=== PATIENT | female | born 1975 | race Caucasian/White ===

== ENCOUNTER 2025-01-15 12:11 | Emergency (ER) | payer MEDICAID, OTHER ==
[~2025-01-15] VITALS: Ht 172.7 cm; Wt 63.2 kg
[2025-01-15] MEDS: SODIUM CHLORIDE 0.9% 1,000 ML IV ONE ×2 (12:15→12:45)
--- NOTE | 2025-01-15 12:18 | ED.PDOC ---
History of Present Illness HPI Comments 49 year old female JARET presents to the ED with chief complaint of numbness/tingling. 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 Patient relays that she then experienced an episode of nausea and vomiting prior to EMS arrival. EMS states they provided the patient 4mg of Zofran IV and her Accucheck was 144. Patient states she has had a cough with associated nasal congestion for about a week now. Patient denies any chest pain, SOB, headache, dizziness, numbness or weakness of extremities, or abdominal pain. Time Seen by MD: 12:15 Reviewed Notes: Nurses Notes, Supply Chain Generalist Notes, Medications, Allergies Allergies: Coded Allergies: NO KNOWN ALLERGIES (Unverified , 01/15/25) Information Source: Patient, Emergency Med Personnel Mode of Arrival: EMS Severity: Moderate Timing: Hours Duration: Since onset Prehospital treatment: None Past Medical History PAST MEDICAL HISTORY: Denies Surgical History: VALVER History: No Pertinent VALVER History Family History Family History: Reviewed,noncontributory to illness, Family hx of DM, Family hx of Cancer Social History Smoker: Non-Smoker Alcohol: Denies ETOH Use Drugs: Marijuana Lives In: Home Constitutional: denies: chills, diaphoresis, fatigue, fever, malaise, sweats, weakness, others EENTM: reports: nose congestion; denies: blurred vision, double vision, ear bleeding, ear discharge, ear drainage, ear pain, ear ringing, eye pain, eye redness, hearing loss, mouth pain, mouth swelling, nasal discharge, nose bleeding, nose pain, photophobia, tearing, throat pain, throat swelling, voice changes, others Respiratory: reports: cough; denies: hemoptysis, orthopnea, SOB at rest, shortness of breath, SOB with excertion, stridor, wheezing, others Cardiovascular: denies: chest pain, dizzy spells, diaphoresis, Dyspnea on exertion, edema, irregular heart beat, left arm pain, lightheadedness, palpitations, PND, syncope, others Gastrointestinal: reports: nausea, vomiting; denies: abdomen distended, abdominal pain, blood streaked bowels, constipated, diarrhea, dysphagia, difficulty swallowing, hematemesis, melena, poor appetite, poor fluid intake, rectal bleeding, rectal pain, others Genitourinary: denies: abnormal vagina bleeding, burning, dyspareunia, dysuria, flank pain, frequency, hematuria, incontinence, pain, , vagina discharge, urgency, others Neurological: reports: numbness (to hands and feet), tingling (to hands and feet); denies: dizziness, fainting, headache, left sided numbness, left sided weakness, paresthesia, pre-existing deficit, right sided numbness, right sided weakness, seizure, speech problems, tremors, weakness, others Musculoskeletal: denies: back pain, gout, joint pain, joint swelling, muscle pain, muscle stiffness, neck pain, others Integumetry: denies: bruises, change in color, change in hair/nails, dryness, laceration, lesions, lumps, rash, wounds, others Allergic/Immunocompromised: denies: Difficulty Healing, Frequent Infections, Hives, Itching, others Hematologic/Lymphatic: denies: anemia, blood clots, easy bleeding, easy bruising, swollen glands, others Endocrine: denies: excessive hunger, excessive sweating, excessive thirst, excessive urination, flushing, intolerance to cold, intolerance to heat, unexplained weight gain, unexplained weight loss, others Psychiatric: denies: anxiety, bipolar disorder, depression, hopeless, panic disorder, schizophrenia, sleepless, suicidal, others All Other Systems: Reviewed and Negative Physical Exam General Appearance: No Apparent Distress HEENT: Normal ENT Inspection, Pharynx Normal, TMs Normal Neck: Full Range of Motion, Non-Tender, Normal, Normal Inspection Respiratory: Chest Non-Tender, Lungs Clear, No Accessory Muscle Use, No Res piratory Distress, Normal Breath Sounds Cardiovascular: No Edema, No JVD, No Murmur, No Gallop, Normal Peripheral Pulses, Regular Rate/Rhythm Breast Exam: Deferred Gastrointestinal: No Organomegaly, Non Tender, No Pulsatile Mass, Normal Bowel Sounds, Soft Genitalia: Deferred Pelvic: Deferred Rectal: Deferred Extremities: No calf tenderness, Normal capillary refill, Normal inspection, Normal range of motion, Non-tender, No pedal edema Musculoskeletal : Apperance: Normal Neurologic: Alert, cook sauce II-XII nml as Tested, No Motor Deficits, Normal Affect, Normal Mood, No Sensory Deficits Cerebellar Function: Normal Reflexes: Normal Skin: Dry, Normal Color, Warm Lymphatic: No Adenopathy Was a procedure done? Was a procedure done?: No EKG EKG : Pulse Rate (adult): 60 [place]: Normal Cardiac Rhythm: NSR Block: None Hypertrophy: None ST: Normal Differential Dx Considerations may include: Generalized weakness, pelvic mass X-Ray, Labs, Meds, VS Vital Signs Date Time Temp Pulse Resp B/P (MAP) Pulse Ox O2 Delivery O2 Flow Rate FiO2 01/15/25 14:22 60 01/15/25 13:24 98.2 54 16 110/77 (88) 98 98.2 01/15/25 13:24 54 16 95 Room Air* 0 21 01/15/25 12:35 60 01/15/25 12:27 98.6 63 18 116/83 (94) 100 Lab Test 01/15/25 13:05 Range/Units White Blood Count 9.9 4.4-10.8 10^3/uL Red Blood Count 4.63 4.0-5.20 10^6/uL Hemoglobin 13.6 12.2-16.2 g/dL Hematocrit 41.0 36.0-46.0 % Mean Corpuscular Volume 88.5 80.0-100.0 fL Mean Corpuscular Hemoglobin 29.4 28.0-32.0 pg Mean Corpuscular Hemoglobin Concent 33.2 32.0-36.0 g/dL Red Cell Distribution Width 14.7 H 11.8-14.3 % Platelet Count 251 140-450 10^3/uL Mean Platelet Volume 8.4 6.9-10.8 fL Neutrophils (%) (Auto) 77.1 37.0-80.0 % Lymphocytes (%) (Auto) 13.5 10.0-50.0 % Monocytes (%) (Auto) 8.7 0.0-12.0 % Eosinophils (%) (Auto) 0.2 0.0-7.0 % Basophils (%) (Auto) 0.5 0.0-2.0 % Neutrophils # (Auto) 7.7 1.6-8.6 10 ^3/uL Lymphocytes # (Auto) 1.3 0.4-5.4 10 ^3/uL Monocytes # (Auto) 0.9 0-1.3 10 ^3/uL Eosinophils # (Auto) 0 0-0.8 10 ^3/uL Basophils # (Auto) 0 0-0.2 10 ^3/uL Nucleated Red Blood Cells 0.1 % Sodium Level 139 136-145 mmol/L Potassium Level 4.6 3.5-5.1 mmol/L Chloride Level 103 98-107 mmol/L Carbon Dioxide Level 28 20-31 mmol/L Anion Gap 8 5-15 Blood Urea Nitrogen 13 9-23 mg/dL Creatinine 0.84 0.550-1.02 mg/dL Glomerular Filtration Rate Calc 86 >90 mL/min BUN/Creatinine Ratio 15.5 10.0-20.0 Serum Glucose 101 74-106 mg/dL Calcium Level 10.2 8.7-10.4 mg/dL Current Medications Medications (Trade) Dose Ordered Sig/Vincent Route Start Time Stop Time Status Last Admin Sodium Chloride 1,000 ml @ 1,000 mls/hr Q1H ONCE IV 01/15/25 12:45 01/15/25 13:44 DC 01/15/25 12:45 CT Abd/Pel indicates: 1. 3.6 cm right adnexal cystic lesion. Pelvic ultrasound recommended for further evaluation. 2. Colonic diverticulosis without acute diverticulitis. 3. Hepatomegaly. IV Hep-Lock was established The patient was given 1 L bolus of normal saline We did advise the patient of the possible adnexal cystic lesion The patient was told to follow up with the dairy farm worker The patient's CBC and chemistry panel is within normal limits Images Reviewed?: Images reviewed and evaluated by me Time of 1ST Reevaluation: 14:39 Reevaluation 1ST: Improved Patient Education/Counseling: Diagnosis, Treatment, Prognosis, Need For Follow Up Family Education/Counseling: Diagnosis, Treatment, Prognosis, Need For Follow Up Additional Information -Reviewed patient's previous visit(s): None - The following tests were ordered, and results were reviewed by me: EKG, BMP, UA, CBC - Additional information was gathered from interviewing the following independent Historian: EMS - I reviewed and agreed with the following test results read by other provider: None - I discussed treatments and results with medical personnel and: patient Comprehensive systems review obtained and negative except for what is stated in the HPI. Departure 1 Departure Time of Disposition: 14:40 Impression: Primary Impression: Generalized weakness Additional Impression: Pelvic mass Disposition: 01 HOME / SELF CARE / HOMELESS Condition: Fair Discharged With: Self Critical Care Note Critical Care Time?: No Stability Stability form required: No Heart Score Heart Score: Heart Score Response (Comments) Value History N/A 0 EKG N/A 0 Age N/A 0 Risk Factors N/A 0 Troponin N/A 0 Total 0 I personally scribed for JANETTE LORENZO MD ([email or web address]) on 01/15/25 at 12:18. Electronically submitted by Ovidio Rivas ([email or web address]). I personally scribed for JANETTE LORENZO MD ([email or web address]) on 01/15/25 at 12:19. Electronically submitted by Ovidio Rivas ([email or web address]). I personally scribed for JANETTE LORENZO MD ([email or web address]) on 01/15/25 at 13:26. Electronically submitted by Ovidio Rivas ([email or web address]). I personally scribed for JANETTE LORENZO MD ([email or web address]) on 01/15/25 at 14:22. Electronically submitted by Ovidio Rivas ([email or web address]). JANETTE LORENZO MD Jan 15, 2025 12:18
--- NOTE | 2025-01-15 13:18 | DVH ---
Exam: CT CT AB PEL WO CON-NO ORAL OR IV History: Pain Comparison Study: None available at time of dictation. Technique: Multidetector spiral CT of the abdomen and pelvis was performed from lung bases to pubic s ymphysis. Imaging was performed without intravenous contrast. Coronal and sagittal multiplanar reform ats were obtained from the axial data set by the technologist. Radiation Dose : 1. Abdomen/Pelvis: CTDIvol 6.23 mGy, DLP 326.74 mGy*cm. Findings: Evaluation of vasculature and solid organs is limited due to lack of intravenous contrast use. Lung Bases: Lung bases are clear. Visualized portions of the heart and pericardium are unremarkable. Liver: The liver is enlarged measuring 18.5 cm in craniocaudal dimension. No focal lesions. Gallbladder and Biliary Tree: The gallbladder is unremarkable. No intrahepatic or extrahepatic biliar y ductal dilatation. Spleen: Unremarkable Pancreas: The pancreas is grossly unremarkable. Adrenal Glands: Unremarkable Kidneys: Kidneys are unremarkable without calculi or hydronephrosis. GI tract: The stomach is grossly normal in appearance. No evidence of small bowel wall thickening or abnormal dilatation to suggest bowel obstruction. Scattered colonic diverticulosis without acute dive rticulitis. The appendix is within normal limits. Peritoneum/mesentery/retroperitoneum. No evidence of free intraperitoneal air. No ascites. No evidenc e of suspicious lymphadenopathy. Abdominal Wall: Unremarkable. Vasculature: The visualized abdominal aorta is normal in size and caliber. Evaluation of abdominal a nd pelvic vessels is limited due to lack of intravenous contrast. Urinary Bladder: Grossly unremarkable for degree of distention. Pelvic Organs: There is a 3.6 cm right adnexal cystic lesion. The uterus and left adnexa are unremar kable Musculoskeletal: No aggressive focal bony lesions, acute fractures or dislocation. Soft tissues: Fat containing umbilical hernia. IMPRESSION: 1. 3.6 cm right adnexal cystic lesion. Pelvic ultrasound recommended for further evaluation. 2. Colonic diverticulosis without acute diverticulitis. 3. Hepatomegaly.
[2025-01-15 13:24] VITALS: BP 110/77; PULSE 54; RESP 16; TEMP 98.2; O2SAT 95
[2025-01-15 13:38] LABS: Basophils # (auto) 0 10 ^3/uL (0-0.2); Basophils % (auto) 0.5 % (0.0-2.0); Eosinophils # (auto) 0 10 ^3/uL (0-0.8); Eosinophils % (auto) 0.2 % (0.0-7.0); Hemoglobin 13.6 g/dL (12.2-16.2); Lymphocytes # (auto) 1.3 10 ^3/uL (0.4-5.4); Lymphocytes % (auto) 13.5 % (10.0-50.0); Mean Corpuscular Hemoglobin 29.4 pg (28.0-32.0); Mean Corpuscular Hgb Conc. 33.2 g/dL (32.0-36.0); Mean Corpuscular Volume 88.5 fL (80.0-100.0); Monocytes # (auto) 0.9 10 ^3/uL (0-1.3); Monocytes % (auto) 8.7 % (0.0-12.0); Neutrophils # (auto) 7.7 10 ^3/uL (1.6-8.6); Neutrophils % (auto) 77.1 % (37.0-80.0); Nucleated Red Blood Cells % 0.1 %; Platelet Count (auto) 251 10^3/uL (140-450); Red Blood Cells 4.63 10^6/uL (4.0-5.20); Red Cell Distribution Width 14.7 % (11.8-14.3); White Blood Cell 9.9 10^3/uL (4.4-10.8)
[2025-01-15 13:48] LABS: Chloride 103 mmol/L (98-107); Potassium 4.6 mmol/L (3.5-5.1); Sodium 139 mmol/L (136-145)
[2025-01-15 13:49] LABS: Anion Gap 8 (5-15); Calcium 10.2 mg/dL (8.7-10.4); Carbon Dioxide 28 mmol/L (20-31)
--- NOTE | 2025-01-15 13:52 | ECG ---
[facility] Test Date: 2025-01-15 Test Time: 12:35:03 Pat Name: YING VARMA Department: ER Room: Gender: F Ski Guide: [place] : 1975 Requested By: JANETTE LORENZO Order Number: [id number] Reading MD: Measurements Intervals [place] Rate: 60 P: 54 SC: 137 QRS: 81 QRSD: 75 T: 77 QT: 438 QTc: 438 Interpretive Statements Sinus rhythm Please click the below link to view image of tracing.
[2025-01-15 13:54] LABS: BUN/Creatinine Ratio 15.5 (10.0-20.0); Blood Urea Nitrogen 13 mg/dL (9-23); Glucose 101 mg/dL (74-106)
[2025-01-15 14:22] VITALS: PULSE 60
== END 2025-01-15 16:03 | disposition home or self-care (01) ==
LOC: ER 12:11 → EDBD 12:11 → ER 16:03
DX: R53.1 Weakness (principal); R19.00 Intra-abdominal and pelvic swelling, mass and lump, unspecified site
CPT/HCPCS: 36415; 74176; 80048; 84702; 85025; 93005; 96360; 99284; J7030